=== PATIENT | male | born 1990 | race Asian ===

== ENCOUNTER 2016-12-25 12:55 | Inpatient (IN) | payer OTHER ==
[2016-12-25 15:27] VITALS: BMI 20.7
--- NOTE | 2016-12-25 17:15 | HP ---
COWS - Scale Resting Pulse: 0= ND 80 or Below Sweatin= Chills/Flushing Restless Observation: 1= Difficult to Sit Still Pupil Size: 0= Normal to Room Light Bone or Joint Aches: 2= Severe Diffuse Aches Runny Nose/ Eye Tearin= Runny Nose/Eyes GI Upset > 30mins: 2= Nausea/Diarrhea Tremor Observation: 2= Slight Tremor Visible Yawning Observation: 1= 1-2x During Session Anxiety or Irritability: 2=Irritable/Anxious Goose Flesh Skin: 0=Smooth Skin COWS Score: 13 CIWA Score - CIWA Score Nausea/Vomitin-Mild Nausea/No Vomiting Muscle Tremors: 4-Moderate,w/Arms Extend Anxiety: 4-Mod. Anxious/Guarded Agitation: 4-Moderately Restless Paroxysmal Sweats: 1-Minimal Palms Moist Orientation: 1-Uncertain about Date Tacttile Disturbances: 0-None Auditory Disturbances: 0-None Visual Disturbances: 0-None Headache: 0-None Present CIWA-Ar Total Score: 15 Admission ROS S - Ebola screening Have you traveled outside of the country in the last 21 days: No Have you had contact with anyone from an Ebola affected area: No Have you been sick,other than usual withdrawal symptoms: No Do you have a fever: No Admission Physical Exam S - Vital Signs Vital Signs: Vital Signs - 24 hr 12/25/16 15:25 Temperature 96.4 F L Pulse Rate 78 Respiratory 20 Rate Blood Pressure 133/72 BHS Breath Alcohol Content Breath Alcohol Content: 0 Vital Signs - Vital Signs Vital Signs Refused: No Temperature: 96.4 F Temperature Source: Oral Pulse Rate: 78 Respiratory Rate: 20 Blood Pressure: 133/72 BP Location: Left Arm Blood Pressure Position: Sitting - Height Height: 6 ft 2 in - Weight Weight: 162 lb Weight Measurement Method: Standing Scale Body Mass Index (BMI): 20.7 - Bowel Function Bowel Movement: Yes Urine Drug Screen - Control Is Test Valid: Yes - Results Drug Screen Negative: No Urine Drug Screen Results: ROGERS-Cocaine, OPI-Opiates
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
[2016-12-25] MEDS ORDERED: guaiFENesin/D-METHORPHAN HB 10 ML UNIT-DOSE CUPS PO PRN (18:03)
[2016-12-25] MEDS ORDERED: MAG HYDROX/AL HYDROX/SIMETH 30 ML UNIT-DOSE CUP PO PRN (18:03)
[2016-12-25] MEDS ORDERED: NICOTINE POLACRILEX 2 MG GUM BC PRN (18:03)
[2016-12-25] MEDS ORDERED: IBUPROFEN 400 MG TABLET (FP) PO PRN (18:03)
[2016-12-25] MEDS ORDERED: ACETAMINOPHEN 325 MG TABLET (FP) PO PRN (18:03)
[2016-12-25] MEDS ORDERED: chlordiazePOXIDE HCL 25 MG CAPSULE PO PRN (18:03)
[2016-12-25] MEDS ORDERED: MAGNESIUM HYDROX 2400MG/30ML ORAL SUSPENSION 30 ML CUP PO PRN (18:03)
[2016-12-25] MEDS ORDERED: diphenhydrAMINE HCL 50 MG CAPSULE PO PRN (18:03)
[2016-12-25] MEDS ORDERED: LOPERAMIDE HCL 2 MG CAPSULE PO PRN (18:03)
[2016-12-25] MEDS ORDERED: MAGNESIUM CITRATE 300 ML BOTTLE PO PRN (18:03)
[2016-12-25] MEDS ORDERED: hydrOXYzine PAMOATE 50 MG CAPSULE (FP) PO PRN (18:03)
[2016-12-25] MEDS ORDERED: MENTHOL/PHENOL 1 EACH UD MM PRN (18:03)
[2016-12-25] MEDS ORDERED: P-EPHED 60MG/TRIPROLIDI 2.5MG TABLET PO PRN (18:03)
[2016-12-25] MEDS ORDERED: chlordiazePOXIDE HCL 25 MG CAPSULE PO ONE (19:00)
[2016-12-25] MEDS ORDERED: METHADONE HCL 10 MG TABLET (FOR DETOX USE ONLY) PO ONE ×2 (19:00→23:00)
[2016-12-25] MEDS: NICOTINE 21 MG/24 HOURS TOPICAL PATCH TD SCH (19:23)
--- NOTE | 2016-12-25 19:58 | CONSULT ---
[facility] Psychiatric Consult - Data Date of interview: 12/25/16 Admission source: [facility] Identifying data: First admission to [facility] for this 26 y/o male from [place] descent seeking detox treatment for heroin,cocaine,alcohol and xanax dependence.patient is single without children,homeless,uneployed and reportedly deprived of any form of financial assistance. Substance Abuse History: - Smoking Cessation. Smoking history: Current every day smoker. Have you smoked in the past 12 months: Yes. Aproximately how many cigarettes per day: 20. Hx Chewing Tobacco Use: No. Initiated information on smoking cessation: Yes. 'Breaking Loose' booklet given: 12/25/16. - Substance & Tx. History. Hx Alcohol Use: Yes. Hx Substance Use: Yes. Substance Use Type : Alcohol, Cocaine, Heroin. Hx Substance Use Treatment: Yes ([facility] 2015 NOT COMPLETED). Confirmed by patient. Medical History: Patient endorses good general health. Psychiatric History: Patient denies. Physical/Sexual Abuse/Trauma History: Patient denies. Additional Comment: Urine Drug Screen Results: ROGERS-Cocaine, OPI-Opiates.Noted. Mental Status Exam - Mental Status Exam Alert and Oriented to: Time, Place, Person Cognitive Function: Good Patient Appearance: Well Groomed Mood: Hopeful, Euthymic Affect: Appropriate, Normal Range Patient Behavior: Fatigued, Appropriate, Cooperative Speech Pattern: Clear, Appropriate Voice Loudness: Normal Thought Process: Goal Oriented Thought Disorder: Not Present Hallucinations: Denies Suicidal Ideation: Denies Homicidal Ideation: Denies Insight/Judgement: Poor Sleep: Poorly, Difficulty falling asleep Appetite: Good Muscle strength/Tone: Normal Gait/Station: Normal Psychiatric Findings - Problem List (Gay 1, 2,3) (1) Alcohol dependence with uncomplicated withdrawal Current Visit: Yes Status: Acute (2) Cocaine dependence Current Visit: Yes Status: Acute (3) Opioid dependence with withdrawal Current Visit: Yes Status: Acute (4) Nicotine dependence Current Visit: Yes Status: Acute (5) Low back pain Current Visit: Yes Status: Acute (6) Insomnia Current Visit: Yes Status: Acute - Initial Treatment Plan Initial Treatment Plan: Psychoeducation.Detoxification.Ambien 10 mg po hs.Patient made aware of parasomnias.he is in agreement with this careplan.Observation.
[2016-12-25] MEDS: chlordiazePOXIDE HCL 25 MG CAPSULE PO SCH (22:24)
[2016-12-25] MEDS: cloNIDine HCL 0.1 MG TABLET PO SCH (22:24)
[2016-12-25] MEDS: ZOLPIDEM TARTRATE 5 MG TABLET PO PRN (22:24)
[2016-12-25] MEDS: GABAPENTIN 300 MG CAPSULE (FP) PO SCH (22:24)
[2016-12-25] MEDS: THIAMINE HCL 100 MG TABLET (FP) PO SCH (22:24)
[2016-12-26 03:04] LABS: URINE APPEARANCE CLEAR; URINE BILIRUBIN NEGATIVE (NEGATIVE); URINE COLOR YELLOW; URINE GLUCOSE (UA) NEGATIVE (NEGATIVE); URINE KETONE NEGATIVE (NEGATIVE); URINE LEUK ESTERASE NEGATIVE (NEGATIVE); URINE NITRITE NEGATIVE (NEGATIVE); URINE PROTEIN NEGATIVE (NEGATIVE); URINE UROBILINOGEN NEGATIVE E.U./dl (0.2-1.0)
[2016-12-26 03:10] LABS: URINE BLOOD 2+ (NEGATIVE)
[2016-12-26 03:12] LABS: CALCIUM OXALATE CRYSTALS RARE /hpf (NONE SEEN); URINE MUCUS RARE; URINE RBC 50 /hpf (0-3); URINE WBC 5 /hpf (3-5)
[2016-12-26] MEDS: chlordiazePOXIDE HCL 25 MG CAPSULE PO SCH ×4 (05:59→22:24)
[2016-12-26] MEDS: GABAPENTIN 300 MG CAPSULE (FP) PO SCH ×3 (05:59→22:25)
[2016-12-26] MEDS ORDERED: METHADONE HCL 10 MG TABLET (FOR DETOX USE ONLY) PO SCH (10:00)
[2016-12-26 10:01] LABS: MCH 30.5 pg (25.7-33.7); MCHC 33.8 g/dl (32.0-35.9); MEAN CELL VOLUME 90.4 fl (80-96); MEAN PLT VOLUME 7.6 fl (7.5-11.1); PLATELET COUNT 177 K/MM3 (134-434); RDW 12.5 % (11.9-15.9); WHITE BLOOD COUNT 4.6 K/mm3 (4.0-10.0)
[2016-12-26 10:11] LABS: ALBUMIN 3.2 g/dl (3.4-5.0); ALK PHOS 99 U/L (45-117); ANION GAP 8 (8-16); BILIRUBIN,TOTAL 0.3 mg/dL (0.2-1.0); CALCIUM 8.7 mg/dL (8.5-10.1); CO2 27 mmol/L (21-32); COCKROFT - GAULT 147.98; CREATININE 0.8 mg/dL (0.7-1.3); GLUCOSE,RANDOM 90 mg/dL (74-106); SGOT/AST 41 U/L (15-37); SGPT/ALT 53 U/L (12-78); TOT PROT 6.4 g/dl (6.4-8.2)
[2016-12-26] MEDS: cloNIDine HCL 0.1 MG TABLET PO SCH ×2 (10:28→22:25)
[2016-12-26] MEDS: PRENATAL VITAMINS W/ FOLIC ACID TABLET (FP) PO SCH (10:28)
[2016-12-26] MEDS: NICOTINE 21 MG/24 HOURS TOPICAL PATCH TD SCH (10:29)
[2016-12-26 11:53] LABS: HIV 1 & 2 AB NEGATIVE; HIV 1 AGp24 NEGATIVE
--- NOTE | 2016-12-26 12:50 | EKG ---
Test Reason : Blood Pressure : / mmHG Vent. Rate : 083 BPM Atrial Rate : 083 BPM P-R Int : 138 ms QRS Dur : 088 ms QT Int : 376 ms P-R-T Axes : 064 092 077 degrees QTc Int : 441 ms NORMAL SINUS RHYTHM WITH SINUS ARRHYTHMIA RIGHTWARD AXIS BORDERLINE ECG NO PREVIOUS ECGS AVAILABLE Confirmed by FRITZ RAMIREZ, KLEVER ([id number]) on 12/26/2016 12:50:08 PM Referred By: Prashanth Maharaj Confirmed By:KLEVER HU MD
--- NOTE | 2016-12-26 12:53 | PN ---
S CIWA - CIWA Score Nausea/Vomitin-Int. Nausea w/Dry Heave Muscle Tremors: 2 Anxiety: 4-Mod. Anxious/Guarded Agitation: 1-Slight > Activity Paroxysmal Sweats: 3 Orientation: 4Disoriented Place/Person Tacttile Disturbances: 2-Mild Itch/Numbness/Burn Auditory Disturbances: 0-None Visual Disturbances: 0-None Headache: 3-Moderate CIWA-Ar Total Score: 23 BHS COWS - Scale Resting Pulse: 0= [place] 80 or Below Sweatin=Flushed/Facial Moisture Restless Observation: 1= Difficult to Sit Still Pupil Size: 0= Normal to Room Light Bone or Joint Aches: 2= Severe Diffuse Aches Runny Nose/ Eye Tearin= None GI Upset > 30mins: 2= Nausea/Diarrhea Tremor Observation of Outstretched Hands: 2= Slight Tremor Visible Yawning Observation: 1= 1-2x During Session Anxiety or Irritability: 2=Irritable/Anxious Goose Flesh Skin: 3=Piloerection COWS Score: 15 BHS Progress Note (SOAP) Subjective: Nausea, Stomach Cramping, H/A, Interrupted Sleep, Fatigue, Sweating. Objective: PT. A & O X 2 (DISORIENTED ABOUT CURRENT LOCATION). PT. OBSERVED AMBULATING ON UNIT. 12/26/16 12:46 Vital Signs Temperature 97.1 F L 12/26/16 09:19 Pulse Rate 78 12/26/16 09:19 Respiratory Rate 18 12/26/16 09:19 Blood Pressure 106/58 12/26/16 09:19 O2 Sat by Pulse Oximetry (%) Laboratory Last Values WBC 4.6 K/mm3 (4.0-10.0) 12/26/16 07:00 RBC 4.65 M/mm3 (4.00-5.60) 12/26/16 07:00 Hgb 14.2 GM/dL (11.7-16.9) 12/26/16 07:00 Hct 42.0 % (35.4-49) 12/26/16 07:00 MCV 90.4 fl (80-96) 12/26/16 07:00 MCHC 33.8 g/dl (32.0-35.9) 12/26/16 07:00 RDW 12.5 % (11.9-15.9) 12/26/16 07:00 Plt Count 177 K/MM3 (134-434) 12/26/16 07:00 MPV 7.6 fl (7.5-11.1) 12/26/16 07:00 Sodium 141 mmol/L (136-145) 12/26/16 07:00 Potassium 4.0 mmol/L (3.5-5.1) 12/26/16 07:00 Chloride 106 mmol/L (98-107) 12/26/16 07:00 Carbon Dioxide 27 mmol/L (21-32) 12/26/16 07:00 Anion Gap 8 (8-16) 12/26/16 07:00 BUN 12 mg/dL (7-18) 12/26/16 07:00 Creatinine 0.8 mg/dL (0.7-1.3) 12/26/16 07:00 Creat Clearance w eGFR > 60 (>60) 12/26/16 07:00 Random Glucose 90 mg/dL (74-106) 12/26/16 07:00 Calcium 8.7 mg/dL (8.5-10.1) 12/26/16 07:00 Total Bilirubin 0.3 mg/dL (0.2-1.0) 12/26/16 07:00 AST 41 U/L (15-37) H 12/26/16 07:00 ALT 53 U/L (12-78) 12/26/16 07:00 Alkaline Phosphatase 99 U/L (45-117) 12/26/16 07:00 Total Protein 6.4 g/dl (6.4-8.2) 12/26/16 07:00 Albumin 3.2 g/dl (3.4-5.0) L 12/26/16 07:00 Urine Color Yellow 12/25/16 22:57 Urine Appearance Clear 12/25/16 22:57 Urine pH 5.0 (5.0-8.0) 12/25/16 22:57 Ur Specific [place] 1.025 (1.005-1.025) 12/25/16 22:57 Urine Protein Negative (NEGATIVE) 12/25/16 22:57 Urine Glucose (UA) Negative (NEGATIVE) 12/25/16 22:57 Urine Ketones Negative (NEGATIVE) 12/25/16 22:57 Urine Blood 2+ (NEGATIVE) H 12/25/16 22:57 Urine Nitrite Negative (NEGATIVE) 12/25/16 22:57 Urine Bilirubin Negative (NEGATIVE) 12/25/16 22:57 Urine Urobilinogen Negative E.U./dl (0.2-1.0) 12/25/16 22:57 Ur Leukocyte Esterase Negative (NEGATIVE) 12/25/16 22:57 Urine RBC 50 /hpf (0-3) 12/25/16 22:57 Urine WBC 5 /hpf (3-5) 12/25/16 22:57 Ur Epithelial Cells Rare /hpf (FEW) 12/25/16 22:57 Calcium Oxalate Crystal Rare /hpf (NONE SEEN) 12/25/16 22:57 Urine Mucus Rare 12/25/16 22:57 RPR Titer Nonreactive (NONREACTIVE) 12/26/16 07:00 HIV 1&2 Antibody Screen Negative 12/26/16 07:00 HIV P24 Antigen Negative 12/26/16 07:00 LABS NOTED. Assessment: 12/26/16 12:52 WITHDRAWAL SYMPTOMS. Plan: CONTINUE DETOX. ADVISED PATIENT TO FOLLOW-UP WITH LOGISTIC MANAGER AFTER DISCHARGE FROM DETOX FOR GENERAL MEDICAL ASSESSMENT AND FOR ABNORMAL ADMISSION LAB VALUES.
[2016-12-26] MEDS: ZOLPIDEM TARTRATE 5 MG TABLET PO PRN (22:24)
[2016-12-26] MEDS: CYCLOBENZAPRINE HCL 10 MG TABLET (FP) PO PRN (22:25)
[2016-12-26] MEDS: THIAMINE HCL 100 MG TABLET (FP) PO SCH (23:33)
[2016-12-27] MEDS: chlordiazePOXIDE HCL 25 MG CAPSULE PO SCH ×3 (06:12→17:08)
[2016-12-27] MEDS: GABAPENTIN 300 MG CAPSULE (FP) PO SCH ×3 (06:12→22:23)
[2016-12-27] MEDS: cloNIDine HCL 0.1 MG TABLET PO SCH ×2 (10:03→22:23)
[2016-12-27] MEDS: NICOTINE 21 MG/24 HOURS TOPICAL PATCH TD SCH (10:03)
[2016-12-27] MEDS: METHADONE HCL 5 MG TABLET (FOR DETOX USE ONLY) PO SCH (10:03)
[2016-12-27] MEDS: PRENATAL VITAMINS W/ FOLIC ACID TABLET (FP) PO SCH (10:03)
--- NOTE | 2016-12-27 13:10 | PN ---
[facility] CIWA - CIWA Score Nausea/Vomitin Muscle Tremors: 3 Anxiety: 2 Agitation: 0-Normal Activity Paroxysmal Sweats: 3 Orientation: 0-Oriented Tacttile Disturbances: 3-Moderate Itch/Numb/Burn Auditory Disturbances: 2-Mild Harshness/Frighten Visual Disturbances: 0-None Headache: 0-None Present CIWA-Ar Total Score: 15 BHS COWS - Scale Resting Pulse: 1= [place] 81-100 Sweatin=Flushed/Facial Moisture Restless Observation: 0= Sits Still Pupil Size: 0= Normal to Room Light Bone or Joint Aches: 2= Severe Diffuse Aches Runny Nose/ Eye Tearin= Runny Nose/Eyes GI Upset > 30mins: 2= Nausea/Diarrhea Tremor Observation of Outstretched Hands: 2= Slight Tremor Visible Yawning Observation: 1= 1-2x During Session Anxiety or Irritability: 2=Irritable/Anxious Goose Flesh Skin: 3=Piloerection COWS Score: 17 S Progress Note (SOAP) Subjective: Diarrhea, Tremors, Body aches, Sweating, Fatigue. Objective: PT. A & O X 3, OBSERVED AMBULATING ON UNIT. 12/27/16 13:07 Vital Signs Temperature 96.4 F L 12/27/16 10:06 Pulse Rate 85 12/27/16 10:06 Respiratory Rate 18 12/27/16 10:06 Blood Pressure 108/67 12/27/16 10:06 O2 Sat by Pulse Oximetry (%) Laboratory Last Values WBC 4.6 K/mm3 (4.0-10.0) 12/26/16 07:00 RBC 4.65 M/mm3 (4.00-5.60) 12/26/16 07:00 Hgb 14.2 GM/dL (11.7-16.9) 12/26/16 07:00 Hct 42.0 % (35.4-49) 12/26/16 07:00 MCV 90.4 fl (80-96) 12/26/16 07:00 MCHC 33.8 g/dl (32.0-35.9) 12/26/16 07:00 RDW 12.5 % (11.9-15.9) 12/26/16 07:00 Plt Count 177 K/MM3 (134-434) 12/26/16 07:00 MPV 7.6 fl (7.5-11.1) 12/26/16 07:00 Sodium 141 mmol/L (136-145) 12/26/16 07:00 Potassium 4.0 mmol/L (3.5-5.1) 12/26/16 07:00 Chloride 106 mmol/L (98-107) 12/26/16 07:00 Carbon Dioxide 27 mmol/L (21-32) 12/26/16 07:00 Anion Gap 8 (8-16) 12/26/16 07:00 BUN 12 mg/dL (7-18) 12/26/16 07:00 Creatinine 0.8 mg/dL (0.7-1.3) 12/26/16 07:00 Creat Clearance w eGFR > 60 (>60) 12/26/16 07:00 Random Glucose 90 mg/dL (74-106) 12/26/16 07:00 Calcium 8.7 mg/dL (8.5-10.1) 12/26/16 07:00 Total Bilirubin 0.3 mg/dL (0.2-1.0) 12/26/16 07:00 AST 41 U/L (15-37) H 12/26/16 07:00 ALT 53 U/L (12-78) 12/26/16 07:00 Alkaline Phosphatase 99 U/L (45-117) 12/26/16 07:00 Total Protein 6.4 g/dl (6.4-8.2) 12/26/16 07:00 Albumin 3.2 g/dl (3.4-5.0) L 12/26/16 07:00 Urine Color Yellow 12/25/16 22:57 Urine Appearance Clear 12/25/16 22:57 Urine pH 5.0 (5.0-8.0) 12/25/16 22:57 Ur Specific [place] 1.025 (1.005-1.025) 12/25/16 22:57 Urine Protein Negative (NEGATIVE) 12/25/16 22:57 Urine Glucose (UA) Negative (NEGATIVE) 12/25/16 22:57 Urine Ketones Negative (NEGATIVE) 12/25/16 22:57 Urine Blood 2+ (NEGATIVE) H 12/25/16 22:57 Urine Nitrite Negative (NEGATIVE) 12/25/16 22:57 Urine Bilirubin Negative (NEGATIVE) 12/25/16 22:57 Urine Urobilinogen Negative E.U./dl (0.2-1.0) 12/25/16 22:57 Ur Leukocyte Esterase Negative (NEGATIVE) 12/25/16 22:57 Urine RBC 50 /hpf (0-3) 12/25/16 22:57 Urine WBC 5 /hpf (3-5) 12/25/16 22:57 Ur Epithelial Cells Rare /hpf (FEW) 12/25/16 22:57 Calcium Oxalate Crystal Rare /hpf (NONE SEEN) 12/25/16 22:57 Urine Mucus Rare 12/25/16 22:57 RPR Titer Nonreactive (NONREACTIVE) 12/26/16 07:00 HIV 1&2 Antibody Screen Negative 12/26/16 07:00 HIV P24 Antigen Negative 12/26/16 07:00 LABS NOTED. Assessment: 12/27/16 13:09 WITHDRAWAL SYMPTOMS. Plan: CONTINUE DETOX. PATIENT ADVISED TO FOLLOW-UP WITH TRAVELING CONSTRUCTION SUPERINTENDENT AFTER DISCHARGE FROM DETOX FOR GENERAL MEDICAL ASSESSMENT AND FOR ABNORMAL ADMISSION LAB VALUES.
[2016-12-27] MEDS: THIAMINE HCL 100 MG TABLET (FP) PO SCH (22:22)
[2016-12-27] MEDS: ZOLPIDEM TARTRATE 5 MG TABLET PO PRN (22:23)
[2016-12-27] MEDS: chlordiazePOXIDE 5 MG CAPSULE PO SCH (22:23)
[2016-12-27] MEDS: CYCLOBENZAPRINE HCL 10 MG TABLET (FP) PO PRN (22:23)
[2016-12-28] MEDS: GABAPENTIN 300 MG CAPSULE (FP) PO SCH ×2 (05:56→14:05)
[2016-12-28] MEDS: chlordiazePOXIDE 5 MG CAPSULE PO SCH ×3 (05:56→17:10)
[2016-12-28] MEDS ORDERED: ONDANSETRON *ODT* 4 MG TABLET SL PRN (09:33)
[2016-12-28] MEDS: PRENATAL VITAMINS W/ FOLIC ACID TABLET (FP) PO SCH (10:22)
[2016-12-28] MEDS: cloNIDine HCL 0.1 MG TABLET PO SCH (10:22)
[2016-12-28] MEDS: NICOTINE 21 MG/24 HOURS TOPICAL PATCH TD SCH (10:23)
[2016-12-28] MEDS: METHADONE HCL 5 MG TABLET (FOR DETOX USE ONLY) PO SCH (10:23)
[2016-12-28] MEDS: CYCLOBENZAPRINE HCL 10 MG TABLET (FP) PO PRN (10:23)
--- NOTE | 2016-12-28 15:02 | PN ---
S Progress Note (SOAP) Subjective: Vomiting, Body aches / Muscle spasms, Sweating, H/A, Constipation, Anxious, Interrupted seep, Tremors. Objective: PT. A & O X 3, OBSERVED AMBULATING ON UNIT. 12/28/16 14:59 Vital Signs Temperature 97.6 F 12/28/16 10:51 Pulse Rate 89 12/28/16 10:51 Respiratory Rate 20 12/28/16 10:51 Blood Pressure 134/78 12/28/16 10:51 O2 Sat by Pulse Oximetry (%) Laboratory Last Values WBC 4.6 K/mm3 (4.0-10.0) 12/26/16 07:00 RBC 4.65 M/mm3 (4.00-5.60) 12/26/16 07:00 Hgb 14.2 GM/dL (11.7-16.9) 12/26/16 07:00 Hct 42.0 % (35.4-49) 12/26/16 07:00 MCV 90.4 fl (80-96) 12/26/16 07:00 MCHC 33.8 g/dl (32.0-35.9) 12/26/16 07:00 RDW 12.5 % (11.9-15.9) 12/26/16 07:00 Plt Count 177 K/MM3 (134-434) 12/26/16 07:00 MPV 7.6 fl (7.5-11.1) 12/26/16 07:00 Sodium 141 mmol/L (136-145) 12/26/16 07:00 Potassium 4.0 mmol/L (3.5-5.1) 12/26/16 07:00 Chloride 106 mmol/L (98-107) 12/26/16 07:00 Carbon Dioxide 27 mmol/L (21-32) 12/26/16 07:00 Anion Gap 8 (8-16) 12/26/16 07:00 BUN 12 mg/dL (7-18) 12/26/16 07:00 Creatinine 0.8 mg/dL (0.7-1.3) 12/26/16 07:00 Creat Clearance w eGFR > 60 (>60) 12/26/16 07:00 Random Glucose 90 mg/dL (74-106) 12/26/16 07:00 Calcium 8.7 mg/dL (8.5-10.1) 12/26/16 07:00 Total Bilirubin 0.3 mg/dL (0.2-1.0) 12/26/16 07:00 AST 41 U/L (15-37) H 12/26/16 07:00 ALT 53 U/L (12-78) 12/26/16 07:00 Alkaline Phosphatase 99 U/L (45-117) 12/26/16 07:00 Total Protein 6.4 g/dl (6.4-8.2) 12/26/16 07:00 Albumin 3.2 g/dl (3.4-5.0) L 12/26/16 07:00 Urine Color Yellow 12/25/16 22:57 Urine Appearance Clear 12/25/16 22:57 Urine pH 5.0 (5.0-8.0) 12/25/16 22:57 Ur Specific [place] 1.025 (1.005-1.025) 12/25/16 22:57 Urine Protein Negative (NEGATIVE) 12/25/16 22:57 Urine Glucose (UA) Negative (NEGATIVE) 12/25/16 22:57 Urine Ketones Negative (NEGATIVE) 12/25/16 22:57 Urine Blood 2+ (NEGATIVE) H 12/25/16 22:57 Urine Nitrite Negative (NEGATIVE) 12/25/16 22:57 Urine Bilirubin Negative (NEGATIVE) 12/25/16 22:57 Urine Urobilinogen Negative E.U./dl (0.2-1.0) 12/25/16 22:57 Ur Leukocyte Esterase Negative (NEGATIVE) 12/25/16 22:57 Urine RBC 50 /hpf (0-3) 12/25/16 22:57 Urine WBC 5 /hpf (3-5) 12/25/16 22:57 Ur Epithelial Cells Rare /hpf (FEW) 12/25/16 22:57 Calcium Oxalate Crystal Rare /hpf (NONE SEEN) 12/25/16 22:57 Urine Mucus Rare 12/25/16 22:57 RPR Titer Nonreactive (NONREACTIVE) 12/26/16 07:00 HIV 1&2 Antibody Screen Negative 12/26/16 07:00 HIV P24 Antigen Negative 12/26/16 07:00 LABS NOTED. Assessment: 12/28/16 15:00 WITHDRAWAL SYMPTOMS. Plan: CONTINUE DETOX. PRN FLEXERIL FOR MUSCLE SPASMS. PRN MOM FOR CONSTIPATION. PRN ZOFRAN FOR VOMITING. ADVISED PATIENT TO FOLLOW-UP WITH GLOVE CUTTER AFTER DISCHARGE FROM DETOX FOR GENERAL MEDICAL ASSESSMENT AND FOR ABNORMAL ADMISSION LAB VALUES.
[2016-12-28 17:26] VITALS: BP 102/50; PULSE 96; TEMP 96
--- NOTE | 2016-12-28 19:14 | PN ---
S Progress Note Note: patient did not want to complete treatment,signed release ama,did not want to wait
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
[2016-12-28] MEDS ORDERED: chlordiazePOXIDE HCL 10 MG CAPSULE PO SCH (23:00)
[2016-12-29] MEDS ORDERED: METHADONE HCL 10 MG TABLET (FOR DETOX USE ONLY) PO SCH (10:00)
[2016-12-30] MEDS ORDERED: METHADONE HCL 5 MG TABLET (FOR DETOX USE ONLY) PO SCH (06:00)
== END 2016-12-28 18:48 | disposition left against medical advice (07) | DRG 770 ==
LOC: YASAS 12:55 → Y3N 18:39
PROVIDERS: ADMIT Internal Medicine Addiction Medicine; ATTEND Internal Medicine Addiction Medicine
PROC: HZ2ZZZZ Detoxification Services for Substance Abuse Treatment (ICD-10-PCS; principal; 2016-12-28)
DX: F11.23 Opioid dependence with withdrawal (principal); F10.230 Alcohol dependence with withdrawal, uncomplicated; F14.20 Cocaine dependence, uncomplicated; G47.00 Insomnia, unspecified; M54.5 Low back pain; R63.4 Abnormal weight loss; Z68.20 Body mass index [BMI] 20.0-20.9, adult; Z87.828 Personal history of other (healed) physical injury and trauma
CPT/HCPCS: 36415; 80053; 81003; 81015; 85027; 86593; 87389; 93005; 93010

== ENCOUNTER 2017-01-27 20:20 | Inpatient (IN) | payer OTHER ==
[2017-01-27 20:58] VITALS: BMI 19.9
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
[2017-01-27] MEDS ORDERED: METHADONE HCL 10 MG TABLET (FOR DETOX USE ONLY) PO ONE ×2 (22:17→23:00)
[2017-01-27] MEDS ORDERED: guaiFENesin/D-METHORPHAN HB 10 ML UNIT-DOSE CUPS PO PRN (22:17)
[2017-01-27] MEDS ORDERED: hydrOXYzine PAMOATE 50 MG CAPSULE (FP) PO PRN (22:17)
[2017-01-27] MEDS ORDERED: diazePAM 5 MG TABLET PO ONE (22:17)
[2017-01-27] MEDS ORDERED: NICOTINE POLACRILEX 4 MG GUM BC PRN (22:17)
[2017-01-27] MEDS ORDERED: ACETAMINOPHEN 325 MG TABLET (FP) PO PRN (22:17)
[2017-01-27] MEDS ORDERED: MAGNESIUM CITRATE 300 ML BOTTLE PO PRN (22:17)
[2017-01-27] MEDS ORDERED: IBUPROFEN 400 MG TABLET (FP) PO PRN (22:17)
[2017-01-27] MEDS ORDERED: MAG HYDROX/AL HYDROX/SIMETH 30 ML UNIT-DOSE CUP PO PRN (22:17)
[2017-01-27] MEDS ORDERED: LOPERAMIDE HCL 2 MG CAPSULE PO PRN (22:17)
[2017-01-27] MEDS ORDERED: P-EPHED 60MG/TRIPROLIDI 2.5MG TABLET PO PRN (22:17)
[2017-01-27] MEDS ORDERED: MENTHOL/PHENOL 1 EACH UD MM PRN (22:17)
[2017-01-27] MEDS ORDERED: MAGNESIUM HYDROX 2400MG/30ML ORAL SUSPENSION 30 ML CUP PO PRN (22:17)
[2017-01-27] MEDS: diphenhydrAMINE HCL 50 MG CAPSULE PO PRN (23:45)
[2017-01-27] MEDS: diazePAM 5 MG TABLET PO SCH (23:48)
[2017-01-28] MEDS: diazePAM 5 MG TABLET PO SCH ×3 (05:59→22:11)
[2017-01-28 09:56] LABS: URINE APPEARANCE SLCLOUDY; URINE BILIRUBIN NEGATIVE (NEGATIVE); URINE COLOR YELLOW; URINE GLUCOSE (UA) NEGATIVE (NEGATIVE); URINE KETONE NEGATIVE (NEGATIVE); URINE NITRITE NEGATIVE (NEGATIVE); URINE PROTEIN NEGATIVE (NEGATIVE); URINE UROBILINOGEN NEGATIVE E.U./dl (0.2-1.0)
[2017-01-28] MEDS ORDERED: METHADONE HCL 10 MG TABLET (FOR DETOX USE ONLY) PO SCH (10:00)
[2017-01-28 10:01] LABS: URINE BLOOD 1+ (NEGATIVE); URINE LEUK ESTERASE 2+ (NEGATIVE)
[2017-01-28 10:02] LABS: MCH 30.2 pg (25.7-33.7); MCHC 33.7 g/dl (32.0-35.9); MEAN CELL VOLUME 89.5 fl (80-96); MEAN PLT VOLUME 7.5 fl (7.5-11.1); PLATELET COUNT 186 K/MM3 (134-434); RDW 12.8 % (11.9-15.9); WHITE BLOOD COUNT 4.7 K/mm3 (4.0-10.0)
[2017-01-28 10:12] LABS: CALCIUM OXALATE CRYSTALS RARE /hpf (NONE SEEN); URINE MUCUS MODERATE; URINE RBC 47 /hpf (0-3); URINE WBC 81 /hpf (3-5)
[2017-01-28 10:17] LABS: ALK PHOS 90 U/L (45-117); ANION GAP 7 (8-16); BILIRUBIN,TOTAL 0.3 mg/dL (0.2-1.0); CALCIUM 8.5 mg/dL (8.5-10.1); CO2 29 mmol/L (21-32); COCKROFT - GAULT 141.59; CREATININE 0.8 mg/dL (0.7-1.3); GLUCOSE,RANDOM 91 mg/dL (74-106); SGOT/AST 18 U/L (15-37); SGPT/ALT 27 U/L (12-78)
[2017-01-28] MEDS: PRENATAL VITAMINS W/ FOLIC ACID TABLET (FP) PO SCH (10:20)
[2017-01-28] MEDS: NICOTINE 21 MG/24 HOURS TOPICAL PATCH TD SCH (10:20)
[2017-01-28] MEDS: diazePAM 5 MG TABLET PO PRN ×2 (10:20→17:03)
--- NOTE | 2017-01-28 10:58 | EKG ---
Test Reason : Blood Pressure : / mmHG Vent. Rate : 060 BPM Atrial Rate : 060 BPM P-R Int : 138 ms QRS Dur : 086 ms QT Int : 408 ms P-R-T Axes : 043 087 070 degrees QTc Int : 408 ms NORMAL SINUS RHYTHM NORMAL ECG WHEN COMPARED WITH ECG OF 25-DEC-2016 18:22, NO SIGNIFICANT CHANGE WAS FOUND Confirmed by LACHELLE LOWERY MD ([id number]) on 01/28/2017 10:58:06 AM Referred By: Confirmed By:LACHELLE LOWERY MD
--- NOTE | 2017-01-28 12:39 | PN ---
[facility] CIWA - CIWA Score Nausea/Vomitin-Mild Nausea/No Vomiting Muscle Tremors: 3 Anxiety: 4-Mod. Anxious/Guarded Agitation: 4-Moderately Restless Paroxysmal Sweats: 3 Orientation: 0-Oriented Tacttile Disturbances: 0-None Auditory Disturbances: 0-None Visual Disturbances: 0-None Headache: 0-None Present CIWA-Ar Total Score: 15 S COWS - Scale Resting Pulse: 0= [place] 80 or Below Sweatin=Flushed/Facial Moisture Restless Observation: 1= Difficult to Sit Still Pupil Size: 0= Normal to Room Light Bone or Joint Aches: 1= Mild Discomfort Runny Nose/ Eye Tearin= Runny Nose/Eyes GI Upset > 30mins: 2= Nausea/Diarrhea Tremor Observation of Outstretched Hands: 2= Slight Tremor Visible Yawning Observation: 1= 1-2x During Session Anxiety or Irritability: 2=Irritable/Anxious Goose Flesh Skin: 0=Smooth Skin COWS Score: 13 S Progress Note (SOAP) Subjective: Anxiety,tremors,sweating,interrupted sleep,restless,muscle aches/spasm Objective: 01/28/17 12:38 Vital Signs - 8 hr 01/28/17 01/28/17 06:10 09:13 Temperature 97.3 F L 96.5 F L Pulse Rate 63 75 Respiratory 18 18 Rate Blood Pressure 112/63 122/69 Laboratory Tests 01/28/17 01/28/17 01/28/17 07:00 07:00 07:00 WBC 4.7 RBC 4.44 Hgb 13.4 Hct 39.8 MCV 89.5 MCHC 33.7 RDW 12.8 Plt Count 186 MPV 7.5 Sodium 140 Potassium 4.2 Chloride 104 Carbon Dioxide 29 Anion Gap 7 L BUN 17 D Creatinine 0.8 Creat Clearance w eGFR > 60 Random Glucose 91 Calcium 8.5 Total Bilirubin 0.3 AST 18 D ALT 27 D Alkaline Phosphatase 90 Total Protein 6.0 L Albumin 3.0 L Urine Color Urine Appearance Urine pH Urine Protein Urine Glucose (UA) Urine Ketones Urine Blood Urine Nitrite Urine Bilirubin Urine Urobilinogen Ur Leukocyte Esterase Urine RBC Urine WBC Ur Epithelial Cells Calcium Oxalate Crystal Urine Mucus RPR Titer Nonreactive 01/28/17 08:00 WBC RBC Hgb Hct MCV MCHC RDW Plt Count MPV Sodium Potassium Chloride Carbon Dioxide Anion Gap BUN Creatinine Creat Clearance w eGFR Random Glucose Calcium Total Bilirubin AST ALT Alkaline Phosphatase Total Protein Albumin Urine Color Yellow Urine Appearance Slcloudy Urine pH 5.0 Urine Protein Negative Urine Glucose (UA) Negative Urine Ketones Negative Urine Blood 1+ H Urine Nitrite Negative Urine Bilirubin Negative Urine Urobilinogen Negative Ur Leukocyte Esterase 2+ H Urine RBC 47 Urine WBC 81 Ur Epithelial Cells Few Calcium Oxalate Crystal Rare Urine Mucus Moderate RPR Titer labs noted,U/A noted we'll repeat Assessment: 01/28/17 12:38 Withdrawal sx. Plan: Continue detox
[2017-01-28] MEDS: diphenhydrAMINE HCL 50 MG CAPSULE PO PRN (22:11)
[2017-01-28] MEDS: THIAMINE HCL 100 MG TABLET (FP) PO SCH (22:11)
[2017-01-29] MEDS: diazePAM 5 MG TABLET PO PRN ×3 (05:50→17:11)
[2017-01-29] MEDS: CYCLOBENZAPRINE HCL 10 MG TABLET (FP) PO PRN ×2 (10:09→21:53)
[2017-01-29] MEDS: PRENATAL VITAMINS W/ FOLIC ACID TABLET (FP) PO SCH (10:09)
[2017-01-29] MEDS: diazePAM 5 MG TABLET PO SCH ×2 (10:09→21:53)
[2017-01-29] MEDS: NICOTINE 21 MG/24 HOURS TOPICAL PATCH TD SCH (10:09)
[2017-01-29] MEDS: METHADONE HCL 5 MG TABLET (FOR DETOX USE ONLY) PO SCH (10:10)
--- NOTE | 2017-01-29 11:34 | PN ---
[facility] CIWA - CIWA Score Nausea/Vomitin Muscle Tremors: 3 Anxiety: 3 Agitation: 1-Slight > Activity Paroxysmal Sweats: 3 Orientation: 0-Oriented Tacttile Disturbances: 1-Very Mild Itch/Numbness Auditory Disturbances: 2-Mild Harshness/Frighten Visual Disturbances: 0-None Headache: 0-None Present CIWA-Ar Total Score: 15 BHS COWS - Scale Resting Pulse: 1= [place] 81-100 Sweatin= Chills/Flushing Restless Observation: 1= Difficult to Sit Still Pupil Size: 0= Normal to Room Light Bone or Joint Aches: 2= Severe Diffuse Aches Runny Nose/ Eye Tearin= Nasal Congestion GI Upset > 30mins: 1= Stomach Cramp Tremor Observation of Outstretched Hands: 2= Slight Tremor Visible Yawning Observation: 0= None Anxiety or Irritability: 2=Irritable/Anxious Goose Flesh Skin: 3=Piloerection COWS Score: 14 S Progress Note (SOAP) Subjective: Tremors, Interrupted Sleep, Body Aches, sweating, Stomach cramping. Objective: PT. A & O X 3, OBSERVED AMBULATING ON UNIT. NO ACUTE DISTRESS. 01/29/17 11:31 Vital Signs Temperature 97.2 F L 01/29/17 09:17 Pulse Rate 81 01/29/17 09:17 Respiratory Rate 18 01/29/17 09:17 Blood Pressure 123/83 01/29/17 09:17 O2 Sat by Pulse Oximetry (%) Laboratory Tests 01/27/17 01/28/17 01/28/17 07:00 07:00 07:00 WBC 4.7 RBC 4.44 Hgb 13.4 Hct 39.8 MCV 89.5 MCHC 33.7 RDW 12.8 Plt Count 186 MPV 7.5 Sodium 140 Potassium 4.2 Chloride 104 Carbon Dioxide 29 Anion Gap 7 L BUN 17 D Creatinine 0.8 Creat Clearance w eGFR > 60 Random Glucose 91 Calcium 8.5 Total Bilirubin 0.3 AST 18 D ALT 27 D Alkaline Phosphatase 90 Total Protein 6.0 L Albumin 3.0 L Urine Color Urine Appearance Urine pH Ur Specific [place] Urine Protein Urine Glucose (UA) Urine Ketones Urine Blood Urine Nitrite Urine Bilirubin Urine Urobilinogen Ur Leukocyte Esterase Urine RBC Urine WBC Ur Epithelial Cells Calcium Oxalate Crystal Urine Mucus RPR Titer Hepatitis C Antibody >11.0 H 01/28/17 01/28/17 07:00 08:00 WBC RBC Hgb Hct MCV MCHC RDW Plt Count MPV Sodium Potassium Chloride Carbon Dioxide Anion Gap BUN Creatinine Creat Clearance w eGFR Random Glucose Calcium Total Bilirubin AST ALT Alkaline Phosphatase Total Protein Albumin Urine Color Yellow Urine Appearance Slcloudy Urine pH 5.0 Ur Specific [place] >= 1.030 H Urine Protein Negative Urine Glucose (UA) Negative Urine Ketones Negative Urine Blood 1+ H Urine Nitrite Negative Urine Bilirubin Negative Urine Urobilinogen Negative Ur Leukocyte Esterase 2+ H Urine RBC 47 Urine WBC 81 Ur Epithelial Cells Few Calcium Oxalate Crystal Rare Urine Mucus Moderate RPR Titer Nonreactive Hepatitis C Antibody LABS NOTED. RESULT OF HEPATITIS C ANTIBODY TEST FROM 01/27/2017 NOTED. 01/29/17 15:17 Assessment: 01/29/17 11:31 WITHDRAWAL SYMPTOMS. Plan: CONTINUE DETOX. PRN FLEXERIL FOR BODY ACHES / MUSCLE SPASMS. REPEAT UA ON 01/30/2017 FOR ABNORMAL ADMISSION UA VALUES. PATIENT MADE AWARE OF POSITIVE HEPATITIS C ANTIBODY TEST RESULT FROM 2016. PATIENT DENIES ANY PREVIOUS HISTORY OF POSITIVE HEPATITIS C LAB TEST RESULT / DIAGNOSIS / TREATMENT. HCV PCR QUANT. TEST ALREADY ORDERED FOR F/U. PATIENT WILL BE ABLE TO OBTAIN RESULT SOON TEST RESULT IS AVAILABLE. PATIENT ADVISED TO CONSULT PRIMARY MEDICAL PROVIDER / INFECTIOUS DISEASE SPECIALIST AFTER DISCHARGE FROM DETOX FOR FURTHER EVALUATION. 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 PATIENT OFFERED OPPORTUNITY TO ASK QUESTIONS ABOUT RESULT. PATIENT DENIES ANY DESIRE TO HURT / KILL HIMSELF OR ANYONE ELSE.
[2017-01-29 17:48] LABS: URINE APPEARANCE CLEAR; URINE BILIRUBIN NEGATIVE (NEGATIVE); URINE BLOOD NEGATIVE (NEGATIVE); URINE COLOR YELLOW; URINE GLUCOSE (UA) NEGATIVE (NEGATIVE); URINE KETONE NEGATIVE (NEGATIVE); URINE LEUK ESTERASE NEGATIVE (NEGATIVE); URINE NITRITE NEGATIVE (NEGATIVE); URINE PROTEIN NEGATIVE (NEGATIVE); URINE UROBILINOGEN NEGATIVE E.U./dl (0.2-1.0)
[2017-01-29] MEDS: THIAMINE HCL 100 MG TABLET (FP) PO SCH (21:53)
[2017-01-29] MEDS: diphenhydrAMINE HCL 50 MG CAPSULE PO PRN (22:00)
[2017-01-30] MEDS: diazePAM 5 MG TABLET PO PRN ×3 (05:33→16:34)
[2017-01-30] MEDS: CYCLOBENZAPRINE HCL 10 MG TABLET (FP) PO PRN (09:37)
[2017-01-30] MEDS: METHADONE HCL 5 MG TABLET (FOR DETOX USE ONLY) PO SCH (09:38)
[2017-01-30] MEDS: PRENATAL VITAMINS W/ FOLIC ACID TABLET (FP) PO SCH (09:40)
[2017-01-30] MEDS: NICOTINE 21 MG/24 HOURS TOPICAL PATCH TD SCH (09:42)
[2017-01-30] MEDS: diazePAM 5 MG TABLET PO SCH (10:59)
[2017-01-30] MEDS ORDERED: ONDANSETRON *ODT* 4 MG TABLET SL PRN (11:31)
--- NOTE | 2017-01-30 12:50 | CONSULT ---
[facility] Psychiatric Consult - Data Date of interview: 01/30/17 Admission source: [facility] Identifying data: This is 26 years old male with no psychiatric hoswpitalization history intoXICATED WITH: Alcohol, Crack, Opioids and Nicotine Substance Abuse History: - Smoking Cessation. Smoking history: Current every day smoker. Have you smoked in the past 12 months: Yes. Aproximately how many cigarettes per day: 20. Cigars Per Day: 0. Hx Chewing Tobacco Use: No. Initiated information on smoking cessation: Yes. 'Breaking Loose' booklet given : 01/27/17. - Substance & Tx. History. Hx Alcohol Use: Yes. Hx Substance Use : Yes. Substance Use Type: Alcohol, Cocaine, Heroin, Tranquilizers (XANAX). Hx Substance Use Treatment: Yes ([facility]). - Substances Abused. HEROINE. Route: Injection. Frequency: Daily. Amount used: 20 BAGS. Age of first use: 23. Date of Last Use: 01/27/17. CRACK/ COCAINE. Route: Smoking. Frequency : Daily. Amount used: 1 GM. Age of first use: 25. Date of Last Use: . BEER/LIQUOR. Route: Oral. Frequency: Daily. Amount used: 4 CANS/ 1PINT. Age of first use: 24. Date of Last Use: 01/26/17. XANAX. Route: Oral. Frequency: Daily. Amount used: 8 MG. Age of first use: 19. Date of Last Use: 01/27/17 Medical History: Weight loss, LBP, htn, RLS Psychiatric History: PATIENT REPORTS HISTORY OF DPERSSION AND ANXIETYT, REPORTS SEVERE INSOMNIA, REPORTS USING AMBIEN 10MG PO QHS WITH GOOD RESPONSE PRIOR TO ADMISSION Physical/Sexual Abuse/Trauma History: Denies Additional Comment: AMBIEN 10MG PO QHS Mental Status Exam - Mental Status Exam Alert and Oriented to: Person Cognitive Function: Fair Patient Appearance: Unkempt Mood: Anxious Affect: Mood Congruent Patient Behavior: Cooperative Speech Pattern: Appropriate Voice Loudness: Mildly Loud Thought Process: Goal Oriented Thought Disorder: Being Controlled Hallucinations: Denies Suicidal Ideation: Denies Homicidal Ideation: Denies Insight/Judgement: Fair Sleep: Difficulty falling asleep Appetite: Weight loss Muscle strength/Tone: Normal Gait/Station: Normal Additional Comments: AMBIEN 10MG PO QHS Psychiatric Findings - Problem List ([place] 1, 2,3) (1) Alcohol dependence with uncomplicated withdrawal Current Visit: Yes Status: Chronic (2) Cocaine dependence Current Visit: Yes Status: Chronic (3) Cocaine dependence, uncomplicated Current Visit: Yes Status: Chronic (4) Nicotine dependence Current Visit: Yes Status: Chronic Qualifiers: Nicotine product type: cigarettes Substance use status: uncomplicated Qualified Code(s): F17.210 - Nicotine dependence, cigarettes, uncomplicated (5) Opioid dependence with withdrawal Current Visit: Yes Status: Chronic (6) Sedative, hypnotic or anxiolytic dependence with withdrawal, uncomplicated Current Visit: Yes Status: Chronic (7) Insomnia Current Visit: No Status: Acute (8) Drug-induced mood disorder Current Visit: Yes Status: Acute - Initial Treatment Plan Initial Treatment Plan: AMBIEN 10MG PO QHS
--- NOTE | 2017-01-30 14:06 | PN ---
BHS Progress Note (SOAP) Subjective: Body Aches, Vomiting, H/A, Interrupted sleep, Anxious, Tremors. Objective: PT. A & O X 3, OBSERVED AMBULATING ON UNIT. NO ACUTE DISTRESS. 01/30/17 14:05 Vital Signs Temperature 97.3 F L 01/30/17 12:59 Pulse Rate 96 H 01/30/17 12:59 Respiratory Rate 20 01/30/17 12:59 Blood Pressure 118/80 01/30/17 12:59 O2 Sat by Pulse Oximetry (%) Laboratory Tests 01/27/17 01/28/17 01/28/17 07:00 07:00 07:00 WBC 4.7 RBC 4.44 Hgb 13.4 Hct 39.8 MCV 89.5 MCHC 33.7 RDW 12.8 Plt Count 186 MPV 7.5 Sodium 140 Potassium 4.2 Chloride 104 Carbon Dioxide 29 Anion Gap 7 L BUN 17 D Creatinine 0.8 Creat Clearance w eGFR > 60 Random Glucose 91 Calcium 8.5 Total Bilirubin 0.3 AST 18 D ALT 27 D Alkaline Phosphatase 90 Total Protein 6.0 L Albumin 3.0 L Urine Color Urine Appearance Urine pH Ur Specific [place] Urine Protein Urine Glucose (UA) Urine Ketones Urine Blood Urine Nitrite Urine Bilirubin Urine Urobilinogen Ur Leukocyte Esterase Urine RBC Urine WBC Ur Epithelial Cells Calcium Oxalate Crystal Urine Mucus RPR Titer Hepatitis C Antibody >11.0 H 01/28/17 01/28/17 01/29/17 07:00 08:00 17:32 WBC RBC Hgb Hct MCV MCHC RDW Plt Count MPV Sodium Potassium Chloride Carbon Dioxide Anion Gap BUN Creatinine Creat Clearance w eGFR Random Glucose Calcium Total Bilirubin AST ALT Alkaline Phosphatase Total Protein Albumin Urine Color Yellow Yellow Urine Appearance Slcloudy Clear Urine pH 5.0 8.0 D Ur Specific [place] >= 1.030 H 1.020 Urine Protein Negative Negative Urine Glucose (UA) Negative Negative Urine Ketones Negative Negative Urine Blood 1+ H Negative Urine Nitrite Negative Negative Urine Bilirubin Negative Negative Urine Urobilinogen Negative Negative Ur Leukocyte Esterase 2+ H Negative Urine RBC 47 Urine WBC 81 Ur Epithelial Cells Few Calcium Oxalate Crystal Rare Urine Mucus Moderate RPR Titer Nonreactive Hepatitis C Antibody LABS NOTED. RESULTS OF REPEAT UA NOTED. NO NEED FOR FURTHER ACTION AT THIS TIME. 01/30/17 14:07 01/30/17 14:07 Assessment: 01/30/17 14:06 WITHDRAWAL SYMPTOMS. Plan: CONTINUE DETOX.
[2017-01-30 17:20] VITALS: BP 114/74; PULSE 90; TEMP 96.7
--- NOTE | 2017-01-30 21:42 | DS ---
[facility] Detox Discharge Summary Admission Date: 01/27/17 Discharge Date: 01/30/17 - History Present History: Alcohol Dependence, Cocaine Dependence, Opioid Dependence, Sedative Dependence Additional Comments: patient insists to leave the unit refuses to wait face to face with the provider refuses e prescription Pertinent Past History: hypertension - Physical Exam Results Vital Signs: Vital Signs Temperature 96.7 F L 01/30/17 17:20 Pulse Rate 90 01/30/17 17:20 Respiratory Rate 18 01/30/17 17:20 Blood Pressure 114/74 01/30/17 17:20 O2 Sat by Pulse Oximetry (%) Pertinent Admission Physical Exam Findings: withdrawal sx Laboratory Last Values WBC 4.7 K/mm3 (4.0-10.0) 01/28/17 07:00 RBC 4.44 M/mm3 (4.00-5.60) 01/28/17 07:00 Hgb 13.4 GM/dL (11.7-16.9) 01/28/17 07:00 Hct 39.8 % (35.4-49) 01/28/17 07:00 MCV 89.5 fl (80-96) 01/28/17 07:00 MCHC 33.7 g/dl (32.0-35.9) 01/28/17 07:00 RDW 12.8 % (11.9-15.9) 01/28/17 07:00 Plt Count 186 K/MM3 (134-434) 01/28/17 07:00 MPV 7.5 fl (7.5-11.1) 01/28/17 07:00 Sodium 140 mmol/L (136-145) 01/28/17 07:00 Potassium 4.2 mmol/L (3.5-5.1) 01/28/17 07:00 Chloride 104 mmol/L (98-107) 01/28/17 07:00 Carbon Dioxide 29 mmol/L (21-32) 01/28/17 07:00 Anion Gap 7 (8-16) L 01/28/17 07:00 BUN 17 mg/dL (7-18) D 01/28/17 07:00 Creatinine 0.8 mg/dL (0.7-1.3) 01/28/17 07:00 Creat Clearance w eGFR > 60 (>60) 01/28/17 07:00 Random Glucose 91 mg/dL (74-106) 01/28/17 07:00 Calcium 8.5 mg/dL (8.5-10.1) 01/28/17 07:00 Total Bilirubin 0.3 mg/dL (0.2-1.0) 01/28/17 07:00 AST 18 U/L (15-37) D 01/28/17 07:00 ALT 27 U/L (12-78) D 01/28/17 07:00 Alkaline Phosphatase 90 U/L (45-117) 01/28/17 07:00 Total Protein 6.0 g/dl (6.4-8.2) L 01/28/17 07:00 Albumin 3.0 g/dl (3.4-5.0) L 01/28/17 07:00 Urine Color Yellow 01/29/17 17:32 Urine Appearance Clear 01/29/17 17:32 Urine pH 8.0 (5.0-8.0) D 01/29/17 17:32 Ur Specific [place] 1.020 (1.005-1.025) 01/29/17 17:32 Urine Protein Negative (NEGATIVE) 01/29/17 17:32 Urine Glucose (UA) Negative (NEGATIVE) 01/29/17 17:32 Urine Ketones Negative (NEGATIVE) 01/29/17 17:32 Urine Blood Negative (NEGATIVE) 01/29/17 17:32 Urine Nitrite Negative (NEGATIVE) 01/29/17 17:32 Urine Bilirubin Negative (NEGATIVE) 01/29/17 17:32 Urine Urobilinogen Negative E.U./dl (0.2-1.0) 01/29/17 17:32 Ur Leukocyte Esterase Negative (NEGATIVE) 01/29/17 17:32 Urine RBC 47 /hpf (0-3) 01/28/17 08:00 Urine WBC 81 /hpf (3-5) 01/28/17 08:00 Ur Epithelial Cells Few /hpf (FEW) 01/28/17 08:00 Calcium Oxalate Crystal Rare /hpf (NONE SEEN) 01/28/17 08:00 Urine Mucus Moderate 01/28/17 08:00 RPR Titer Nonreactive (NONREACTIVE) 01/28/17 07:00 Hepatitis C Antibody >11.0 s/co ratio (0.0-0.9) H 01/27/17 07:00 lab noted - Treatment Hospital Course: Detox Protocol Followed, Responded well - Medication Discharge Medications: Ambulatory Orders Gabapentin [Neurontin] 600 mg PO Q8H 12/25/16 Clonidine HCl [Catapres -] 0.1 mg PO BID 01/27/17 - Diagnosis (1) Weight loss Status: Acute (2) Alcohol dependence with uncomplicated withdrawal Status: Acute (3) HTN (hypertension) Status: Chronic Qualifiers: Hypertension type: essential hypertension Qualified Code(s): I10 - Essential (primary) hypertension (4) Nicotine dependence Status: Acute Qualifiers: Nicotine product type: cigarettes Substance use status: in withdrawal Qualified Code(s): F17.213 - Nicotine dependence, cigarettes, with withdrawal (5) Opioid dependence with withdrawal Status: Acute - AMA Did Patient Leave Against Medical Advice: Yes
[2017-01-30] MEDS ORDERED: ZOLPIDEM TARTRATE 10 MG TABLET (PARK CARE ONLY) PO PRN (22:00)
[2017-01-31] MEDS ORDERED: METHADONE HCL 10 MG TABLET (FOR DETOX USE ONLY) PO SCH (10:00)
[2017-01-31] MEDS ORDERED: diazePAM 5 MG TABLET PO SCH (10:00)
[2017-02-01] MEDS ORDERED: METHADONE HCL 5 MG TABLET (FOR DETOX USE ONLY) PO SCH (06:00)
== END 2017-01-30 19:16 | disposition left against medical advice (07) | DRG 770 ==
LOC: YASAS 20:20 → Y3N 22:48
PROVIDERS: ADMIT Internal Medicine; ATTEND Internal Medicine
PROC: HZ2ZZZZ Detoxification Services for Substance Abuse Treatment (ICD-10-PCS; principal; 2017-01-27)
DX: F11.23 Opioid dependence with withdrawal (principal); F10.230 Alcohol dependence with withdrawal, uncomplicated; F13.230 Sedative, hypnotic or anxiolytic dependence with withdrawal, uncomplicated; F17.213 Nicotine dependence, cigarettes, with withdrawal; F19.24 Other psychoactive substance dependence with psychoactive substance-induced mood disorder; I10 Essential (primary) hypertension; G47.00 Insomnia, unspecified; G25.81 Restless legs syndrome; Z87.898 Personal history of other specified conditions
CPT/HCPCS: 36415; 80053; 81003; 81015; 85027; 86593; 86803; 87522; 93005; 93010